=== PATIENT | male | born 1935 | race Caucasian/White ===

== ENCOUNTER 2017-01-13 18:30 | Inpatient (IN) | payer MEDICARE, BC ==
[~2017-01-13] VITALS: Ht 180.3 cm; Wt 82.5 kg
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
--- NOTE | ~2017-01-13 | DS ---
PATIENT'S NAME: CHICA SANTA [facility] AGE: 81 Y [address] ROOM: [address] [address] [place] [facility] [place]: [place]13[place]2017 Discharge Summary DISCHARGE DATE: 01/15/2017 FAMILY PHYSICIAN: Physician, Unknown ATTENDING PHYSICIAN: Romy Evans PRIMARY DIAGNOSES: 1. Acute ischemic stroke, left middle cerebral artery and anterior cerebral artery, embolic. 2. Acute encephalopathy. 3. Essential hypertension. 4. Diabetes mellitus type 2. 5. Deep venous thrombosis with history of pulmonary embolism on long-term anticoagulation with Eliquis. OPERATIONS OR PROCEDURES: MRI of the brain was performed on 01/14/2017 , demonstrating large ischemic stroke in the left cerebrum involving distributions of both the MCA and LESLIE. There was noted to be a 1 cm size of an encephalomalacia at the posterior right cerebellar hemisphere consistent with an old cerebellar infarct. Generalized atrophy was also noted. MR angiogram performed on the same date showed no aneurysm, small left middle cerebral artery without any obvious vessel cut off. HISTORY OF ILLNESS/REASON FOR ADMISSION: Please refer to the H and P dictated on 01/13/2017. HOSPITAL COURSE: The patient was admitted to hospital as noted above with a presumptive diagnosis of acute stroke. CT scan obtained at an outlying facility and was read as no acute process. He did not receive tPA because of a delayed presentation. His symptoms had actually begun more than 48 hours prior to his presentation there. Briefly, his clinical condition was poor at the point of his arrival here. He was encephalopathic with restlessness and inability to follow commands. He was demonstrating significant right hemiplegia. He was placed on the stroke pathway. Neurology was consulted. MRI scan imaging was obtained with results as outlined above. MRA was also performed. His clinical condition deteriorated somewhat. After discussion with the family, it was elected to make him DNR/DNI. This was based on the patient's recent statements with his that he would not want to be "kept alive" by artificial means or live with disability. We did have an extended discussion about this particularly in the setting of the significant stroke. There was some concern for evolution and worsening and the ultimate need for ventilatory support including the possibility of endotracheal intubation. They refused PATIENT'S NAME: CHICA SANTA [facility] AGE: 81 Y [address] ROOM: [address] [address] [place] [facility] [place]: 01/13/2017 Discharge Summary DISCHARGE DATE: 01/15/2017 FAMILY PHYSICIAN: Physician, Unknown ATTENDING PHYSICIAN: Romy Evans any consideration for that. At that point, we did discuss the possibility of scaling back interventions and switching to comfort measures only. They did indicate some interest in that and Palliative Care was consulted. Ultimately they did elect to go with a palliative based approach to his care and this was enacted on 01/14/2017. The patient did demonstrate some significant apnea. He remained poorly responsive in his clinical condition slowly worsened. After some further discussion with the family, they requested to move him closer to home. Arrangements were made for him to be transferred to [facility] in order to be closer to home and to continue to receive end of life care. DISCHARGE INSTRUCTIONS: DIET: Oral cares and only as tolerated. ACTIVITY: As tolerated. Turn q.2 hours and per comfort care. MEDICATIONS: 1. Hyoscyamine 0.125 mg sublingually q.4 hours p.r.n. 2. Acetaminophen 650 mg TX q.4 hours p.r.n. pain or fever. 3. Morphine 1 to 2 mg subcu q.1 hour p.r.n. pain restlessness or air hunger. 4. Atropine 1 to 2 drops sublingually q.4 hours p.r.n. secretions. 5. Lorazepam 0.5 mg q.2 hours IV p.o. or subcu p.r.n. anxiety or restlessness. 6. Haldol 1 mg subcu IV or p.o. q.1 hour p.r.n. restlessness or agitation. 7. Dulcolax 10 mg TX daily p.r.n. constipation. FOLLOW UP: He will have followup on the swing bed unit in [place] by Dr. Fitzgerald. CONDITION ON DISCHARGE: Poor. Total time spent on discharge process 45 minutes. MD MIKEY EAST/sherlyn /[id number] d: 01/16/17 0244 t: 01/17/17 0833, DISCHARGE SUMMARY
[~2017-01-13 18:30] MED LIST: ACCUPRIL40 MG PO; ECOTRIN325 MG PO; ELIQUIS5 MG PO; FISH OIL1000 MG PO; GLUCOPHAGE1000 MG PO; HYDROCHLOROTHIA25 MG PO; LANTUS (IN100 UNIT/M SUB-Q; TOPROL XL 5050 MG PO; ZYRTEC10 MG PO
[2017-01-13] MEDS ORDERED: AMARYL2 MG PO (20:15)
[2017-01-13] MEDS ORDERED: NORVASC2.5 MG PO (20:17)
[2017-01-14 05:49] LABS: ALBUMIN 3.7 gm/dL (3.5-5.0); ANION GAP 15.5 (10.0-19.0); CALCIUM 8.6 mg/dL (8.5-10.5); CREATININE 1.5 mg/dL (0.6-1.3); POTASSIUM 3.5 mMol/L (3.7-5.1); TOTAL BILIRUBIN 1.3 mg/dL (0.0-1.5); TOTAL PROTEIN 7.9 g/dL (6.0-8.4)
--- NOTE | 2017-01-14 07:07 | NUR ---
Significant Event: Patient admitted alert/ oriented to person, agitated, confused at times. Pupils 3mm, brisk, equal. Right sided weakness, patient aware of weakness. Patient 1:1 with sitter for safety. PRN Haldol given for agitation. Patient hypertensive, cardene gtt started to keep SBP <160. Patient on RA, 02 started at 2L NC for sleeping. Lung sounds are clear/dim throughout. Patient has hypoactive bowel sounds, No BM. Inc. voids. Follow up:MRI today
--- NOTE | 2017-01-14 07:49 | NUR ---
ROUTINE DIET ED CONSULT FOR CVA NOTED. PT IS NOT APPROPRIATE FOR EDUCATION. WILL ASSIST NEEDED.
[2017-01-14 09:56] LABS: BILIRUBIN URINE NEGATIVE (NEGATIVE); BLOOD URINE 25 /UL (NEGATIVE); COLOR URINE YELLOW (YELLOW); GLUCOSE URINE 1000 mg/dL (NEGATIVE); KETONE URINE 15 mg/dL (NEGATIVE); LEUKOCYTES URINE NEGATIVE /UL (NEGATIVE); NITRITE URINE NEGATIVE (NEGATIVE); PROTEIN URINE 30 mg/dL (NEGATIVE); TURBIDITY URINE CLEAR (CLEAR); UROBILINOGEN URINE NORMAL (NORMAL)
[2017-01-14 10:20] LABS: BACTERIA URINE NEGATIVE (NEGATIVE); EPITHELIAL URINE RARE #/HPF (NEGATIVE); RBC URINE 0-2 #/HPF (NEGATIVE); WBC URINE RARE #/HPF (NEGATIVE)
--- NOTE | 2017-01-14 11:30 | NUR ---
DIABETES CONSULT: Referral placed due to the patient's A1C being 9.3%. Will continue to follow and provide education when appropriate.
--- NOTE | 2017-01-14 13:15 | NUR ---
Introduced self and role of care management to patient's and son. Patient is off unit for CT. says talked to them about DNR last night and she has now made a decision and wants DNR. She says he would not want to be like he is currently. Says they are waiting for to come talk with them. She hopes to be able to take him home. She says he uses a cane. Does not use O2. Son she helps him alot at home. He has had [facility] in the past but not currently on service. Talked to them about SB and they are open to it if needed to get him stronger. Will follow.
[2017-01-14 13:50] LABS: BICARBONATE 24.2 mmol/L (18.0-23.0); PCO2 34 mmHg (35-45); PO2 94 mmHg (80-90)
--- NOTE | 2017-01-14 14:50 | NUR ---
Occupational Therapy Note: OT attempted to complete pt OT eval and tx however pt was on hold in the a.m. and p.m. per RN. OT will complete the OT eval as appropriate and pt is able. Thank you, Richie Giron, OTR/L
--- NOTE | 2017-01-14 14:52 | NUR ---
D: Physical Therapy Note. I: At 0905 and 1050 this morning, patient's nurse requests to Hold Physical Therapy until after patient's MRI. At 1340 this afternoon patient's nurse requests no Physical Therapy due to decline in patient's condition. P: Begin Physical Therapy with patient when medically appropriate. 01/14/17 García Bond,PT
--- NOTE | 2017-01-14 16:15 | NUR ---
Call from [facility] and she and Dr. Zarco have met with patient's family. They have decided on DNR/DNI and comfort cares. She says they are asking if would be possible to get him back to the hospital in [place]. Told her I will make calls. Called [facility] and had to leave [facility] for Sahra MOLINA Coordinator. Talked to patient's , son, a granddaughter and her and daughter and patient's sister and NARCISA and updated them on the transfer process. Told them I have left a messgae but not sure it will hear back from them today if will be tomorrow. Told them the transfer is probably not possible today. They voice understanding. [facility] Gave them my contact information and told them to call me in the a.m. before they drive to [place] to see where we are at and I will call them once I hear from [place]. Will follow.
--- NOTE | 2017-01-14 17:30 | NUR ---
Significant Event:Obtunded, grimaces with sternal rub. Purposeful with left hand, moderate to strong grasp. Spontaneous movement with left leg. Right side is flaccid. Unable to determine sensation. Disoriented x 3, no verbal response. Cardene off since 1012. HR in 70's since 1000 and SBP 80's to 120's. Lungs clear/diminished with expiratory wheezes. O2 > 90% on 1L/NC with Apnea of 50 seconds. NPO. Incontinent of bladder. Straight cathed and UA sent,is negative. NO BM since admission. Bowel sounds present. 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 Comfort cares initiated. DNR/DNI status. Palliative care here to discuss wishes with and son. Follow up:Possibly move to [place], ADITI Joaquin has left a message. HOpefully transport to [place] tomorrow.
--- NOTE | 2017-01-15 02:45 | NUR ---
Significant Event: [facility]. pt had CVA on thursday and is now on comfort cares. pt not responsive. turned q2hrs. oral cares with turns. INC x1. family at bedside last night. they expressed there wishes that they would like pt moved to [place]. pt on . shows no signs of pain or air hunger. Follow up: continue to monitor
--- NOTE | 2017-01-15 13:39 | NUR ---
Significant Event: Cont on comfort cares. Responds to pain and repositioning. Moans and grimaces at times. Resp 24 this am. All other VS WNL. Temp 98.7, however patient is warm to he touch and sweating. Given Tylneol supp at 1017. Also have used cold cloths. Morhpine 1mg given at 1017 as well. IV SL to R) wrist. Family would like transported to [facility] for continuation of cares. Care management is currently waiting for a call back from [facility]. Family remains at bedside t/o shift. Follow up:
--- NOTE | 2017-01-15 14:15 | NUR ---
Several calls thoroughout the morning and early afternoon with Alejandrina Cleaning SB coordinator at [facility]. Information faxed. Alejandrina calls back and says she anticipates Dr. Fitzgerald will accept patient, but he will be self pay, as they can't skill him for comfort cares. She says it would be $295/day. She has contacted [facility] regarding patient. Talked to patient's brother and Bel. Talked with patient's , son and DIL. They want to talk about options and will let me know their decision. Received call from Mindy Pascual and they want to get back to [place] and will pay for it. Talked to Dr. Zarco several times and will transfer patient today once accepted my [facility]. Talked to Alejandrina Cleaning and they will accept patient to [facility]/skilled care and Dr. Fitzgerald will call Dr. Zarco once he is done with a meeting. She says patient can head there way anytime. Called [facility] comm spec to set up amublance transfer. Talked to family and updated them. They are grateful patient can go closer to home. Orders faxed. Nurse will call nurse to nurse report. Patient to transfer to [facility] [place] [facility] today for comfort/end of life care via ambulance at 1500.
--- NOTE | 2017-01-15 15:13 | NUR ---
Pt and his belongings were transported via ambulance to [facility]. 2 mg IV Morphine was given prior to transport, VSS, Family present and left with patient.
== END 2017-01-15 15:05 | DRG 64 ==
LOC: GICU 18:30 → GMSU 01-14 19:18
PROVIDERS: Family Medicine; ADMIT Internal Medicine
DX: I63.412 Cerebral infarction due to embolism of left middle cerebral artery (principal); G93.49 Other encephalopathy; G81.91 Hemiplegia, unspecified affecting right dominant side; E11.9 Type 2 diabetes mellitus without complications; I63.422 Cerebral infarction due to embolism of left anterior cerebral artery; Z51.5 Encounter for palliative care; I35.0 Nonrheumatic aortic (valve) stenosis; I10 Essential (primary) hypertension; I16.0 Hypertensive urgency; R53.81 Other malaise; Z86.711 Personal history of pulmonary embolism; Z66 Do not resuscitate; Z79.01 Long term (current) use of anticoagulants; Z79.4 Long term (current) use of insulin; Z86.718 Personal history of other venous thrombosis and embolism
CPT/HCPCS: C8925; J1630; J1644; J2270; J7050